=== PATIENT | female | born 1940 | race Caucasian/White ===

== ENCOUNTER → 2024-09-07 07:00 | Outpatient (REF) | payer MEDICARE, OTHER, SELFPAY | LOC: MRI 07:00 | PROVIDERS: ATTENDING PHYSICIAN Podiatrist; FAMILY PHYSICIAN Internal Medicine | DX: M84.374A Stress fracture, right foot, initial encounter for fracture (principal) | CPT/HCPCS: 73718 ==

== ENCOUNTER → 2024-12-28 09:06 | Outpatient (REF) | payer MEDICARE, OTHER, SELFPAY | LOC: HWRAD 09:06 | PROVIDERS: ATTENDING PHYSICIAN Internal Medicine | DX: R10.2 Pelvic and perineal pain (principal); R35.0 Frequency of micturition; K56.2 Volvulus | CPT/HCPCS: 74176 ==

== ENCOUNTER → 2025-01-03 09:01 | Outpatient (REF) | payer MEDICARE, OTHER, SELFPAY | LOC: HWWDC 09:01 | PROVIDERS: ATTENDING PHYSICIAN Internal Medicine | DX: Z12.31 Encounter for screening mammogram for malignant neoplasm of breast (principal) | CPT/HCPCS: 77063; 77067 ==